=== PATIENT | male | born 1985 ===

== ENCOUNTER → 2023-12-03 | Emergency (ER) | payer SELFPAY ==
[~2023-12-03] MED LIST: ASPIRIN 81 MG CHEWABLE TABLET ONE; LIDOCAINE VISCOUS 2% 10ML ORAL SOLN ONE; MAGNES/ALUMIN/SIMET 30ML UCUP ONE; NA CHLORIDE 0.9% 1,000 ML ONE; PANTOPRAZOLE 40 MG INJ ONE; POTASSIUM 25 MEQ EFFERV TAB ONE
[2023-12-03 02:52] LABS: Hematocrit 40.6 % (39.6-49.0); Lymphocytes % 19.8 % (15.3-44.8); MPV 6.8 fL (7.6-11.3); Platelets 250 thou/uL (152-406); RBC Red Blood Cell Count 4.83 M/uL (4.33-5.43)
[2023-12-03 02:57] LABS: Protime INR 1.1
[2023-12-03 03:21] LABS: Albumin 3.5 g/dL (3.4-5.0); Bilirubin Direct 0.2 mg/dL (0-0.2); Bilirubin Indirect, Calculated 0.3 mg/dL (0.2-0.8); Bilirubin Total 0.5 mg/dL (0.2-1.0); Magnesium 2.4 mg/dL (1.6-2.4); Potassium 3.3 mEq/L (3.5-5.1); Troponin High Sensitivity 4.7 pg/mL (<58.9)
--- NOTE | 2023-12-03 05:45 | ER ---
Nurse's Notes [facility] Name: Trevor Vinson Age: 37 yrs Sex: Male : 1985 Arrival Date: 12/03/2023 Time: 02:15 Bed 4 Private MD: Diagnosis: Gastro-esophageal reflux disease with esophagitis;SARS-associated coronavirus as the cause of diseases classified elsewhere;Hypokalemia;Essential (primary) hypertension;Chest pain, unspecified Presentation: 12/03 02:27 Chief complaint: Patient states: I was covid+ 5 days ago. I initially had chest pain 7 jb4 days ago and it went away, yesterday I had a burning in my chest, and an hour ago I started having a stabbing pain in the middle of my chest. Coronavirus screen: Client presents with at least one sign or symptom that may indicate coronavirus-19. Ebola Screen: No symptoms or risks identified at this time. Initial Sepsis Screen: Does the patient meet any 2 criteria? No. Patient's initial sepsis screen is negative. Does the patient have a suspected source of infection? No. Patient's initial sepsis screen is negative. Risk Assessment: Do you want to hurt yourself or someone else? Patient reports no desire to harm self or others. Onset of symptoms was December 03, 2023. Transition of care: patient was not received from another setting of care. 02:27 Method Of Arrival: Ambulatory jb4 02:27 Acuity: CABRERA 3 jb4 Triage Assessment: 06:20 General: Behavior is calm, cooperative, appropriate for age. nw1 Historical: - Allergies: 02:30 No Known Allergies; jb4 - PMHx: 02:30 None; jb4 - PSHx: 02:30 None; jb4 - Immunization history:: Adult Immunizations up to date. - Social history:: Smoking status: Patient denies any tobacco usage or history of. - Family history:: not pertinent. Screenin:40 [facility] ED Fall Risk Assessment (Adult) History of falling in the last 3 months, nw1 including since admission No falls in past 3 months (0 pts) Confusion or Disorientation No (0 pts) Intoxicated or Sedated No (0 pts) Impaired Gait No (0 pts) Mobility Assist Device Used No (0 pt) Altered Elimination No (0 pt) Score/Fall Risk Level 0 - 2 = Low Risk Oriented to surroundings, Maintained a safe environment, Educated pt \\T\\ family on fall prevention, incl call for assistance when getting out of bed, Assessed \\T\\ reinforced patient's understanding of fall precautions, Provided non-skid footwear, Hourly rounding (assess needs \\T\\ fall precautionary measures) done. Abuse screen: Denies threats or abuse. Denies injuries from another. Nutritional screening: No deficits noted. Tuberculosis screening: No symptoms or risk factors identified. Assessment: 02:40 General: Appears in no apparent distress. well groomed, well developed, well nourished. nw1 04:57 Pain: Complains of pain in mid-sternal area Pain does not radiate. Pain began 2 hours nw1 ago. Is intermittent. Neuro: Level of Consciousness is awake, alert, obeys commands, Oriented to person, place, time, situation, Appropriate for age Public Relations Account Supervisor are equal bilaterally Moves all extremities. Full function Gait is steady. Cardiovascular: Reports chest pain, Denies diaphoresis, fatigue, lightheadedness, nausea, palpitations, shortness of breath, syncope, vomiting, Heart tones present Capillary refill < 3 seconds in bilateral fingers Rhythm is sinus rhythm. Respiratory: Denies cough, shortness of breath labored breathing, pain with respiration, pain with cough, pain with movement, air hunger. GI: No deficits noted. No signs and/or symptoms were reported involving the gastrointestinal system. Abdomen is non-distended. Derm: No deficits noted. No signs and/or symptoms reported regarding the dermatologic system. Skin is intact, is healthy with good turgor, Skin is dry, Skin is pink, warm \\T\\ dry. normal. Musculoskeletal: No deficits noted. No signs and/or symptoms reported regarding the musculoskeletal system. 05:49 Reassessment: questioned metoprolol XL 25mg order due to BP being 121/91 and heart rate nw1 of 62 with MD Baez and not feeling comfortable giving medication with that low of a heart rate and stable BP and no arrhythmia noted. Per Dr. Baez "It's fine, 25mg won't touch it". Pt to be discharged pending troponin level. Pt not to discharge at this time until pending labs are returned. 06:18 Reassessment: BP medication explained to patient and patient verbalized understanding nw1 of uses and adverse reactions to medication. Pt refused bp medication. Vital Signs: 02:27 BP 135 / 97; Pulse 68; Resp 16; Temp 97.3(TE); Pulse Ox 100% on R/A; Weight 81.65 kg jb4 (R); Height 5 ft. 10 in. (R); 04:15 BP 122 / 102; Pulse 69; Resp 17; Pulse Ox 100% ; nw1 05:28 BP 120 / 90; Pulse 64; Pulse Ox 99% on R/A; nw1 05:30 BP 121 / 91; Pulse 62; Pulse Ox 99% on R/A; nw1 06:17 BP 123 / 85; Pulse 63; Pulse Ox 98% on R/A; nw1 02:27 Body Mass Index 25.83 (81.65 kg, 177.8 cm) jb4 Geff Coma Score: 02:40 Eye Response: spontaneous(4). Motor Response: obeys commands(6). Verbal Response: nw1 oriented(5). Total: 15. ED Course: 02:17 Patient arrived in ED. ag3 02:27 Yusef Baez MD is Attending Physician. libertad 02:30 Triage completed. jb4 02:30 Arm band placed on right wrist. jb4 02:33 Ashlee Chicas, RN is Primary Nurse. nw1 02:40 Patient has correct armband on for positive identification. Placed in gown. Bed in low nw1 position. Call light in reach. Side rails up X2. Provided Education on: POC. Client placed on continuous cardiac and pulse oximetry monitoring. NIBP monitoring applied. script supervisor on. Pulse ox on. NIBP on. Door closed. Warm blanket given. 02:40 No provider procedures requiring assistance completed. Inserted saline lock: 20 gauge nw1 in right forearm, using aseptic technique. Blood collected. 03:10 Basic Metabolic Panel Sent. nw1 03:10 LFT's Sent. nw1 03:10 Magnesium Sent. nw1 03:10 NT PRO-BNP Sent. nw1 03:10 Troponin HS Sent. nw1 03:32 XRAY Chest (1 view) In Process Unspecified. EDMS 04:37 CT Chest For PE Angio In Process Unspecified. EDMS 05:06 Patient maintains SpO2 saturation greater than 95% on room air. nw1 05:07 Troponin HS: 5 am Sent. nw1 05:44 Kd Lobato MD is Referral Physician. [facility] 05:44 Nazia Babin MD is Referral Physician. [facility] 05:45 Troponin HS: 5 am Sent. nw1 06:20 IV discontinued, intact, bleeding controlled, No redness/swelling at site. Pressure nw1 dressing applied. Administered Medications: 03:03 Drug: Aspirin PO Chewable Tablet 324 mg PO once; 81 mg tablets x 4 Route: PO; nw1 03:03 Drug: NS 0.9% IV 1000 ml IV at 125 ml/hr continuous Route: IV; Rate: 125 ml/hr; Site: nw1 right forearm; 03:03 Drug: NS 0.9% IV 1000 ml IV at 1 bolus Per protocol; 1000 mL bolus Route: IV; Rate: 1 nw1 bolus; Site: right forearm; 04:18 Drug: GI Cocktail without - (Maalox PO 30 ml, Lidocaine Mucous Membrane 2 % 15 la4 ml) PO once Route: PO; 04:18 Drug: Pantoprazole IVP 40 mg IVP once Route: IVP; Site: left forearm; la4 04:18 Drug: Potassium PO Effervescent Tablet 25 mEq PO once; dissolve in 4 ounces of water or la4 juice Route: PO; 06:18 Not Given (Patient Refused): toprol xl25 mg PO once nw1 Medication: 02:40 VIS not applicable for this client. nw1 Outcome: 05:[address] [facility] 06:19 Discharged to home ambulatory, nw1 06:19 Condition: stable 06:19 Discharge instructions given to patient, Instructed on discharge instructions, follow up and referral plans. Demonstrated understanding of instructions, follow-up care, medications, Prescriptions given X 4, 06:20 Patient left the ED. nw1 Signatures: Dispatcher [employer] EDMS Yusef Baez MD MD cha Bryson, James, RN RN [email or web address] Reshma Brunson3 Km Kang RN RN [email or web address] Ashlee Chicas RN RN nw1 Corrections: (The following items were deleted from the chart) 05:03 04:57 Reassessment: Pt states that he has midsternal CP that has been intermittent x1 nw1 week getting worse captain waiter. Pt denies pain radiating anywhere. Pt states pain reduced to 5/10. nw1 05:03 04:57 Cardiovascular: Reports chest pain, Denies diaphoresis, fatigue, lightheadedness, nw1 nausea, palpitations, shortness of breath, syncope, vomiting, Heart tones present Capillary refill < 3 seconds in bilateral fingers Rhythm is sinus rhythm nw 05: 04:57 General: Appears in no apparent distress. well groomed, well developed, well nw1 nourished, nw 05: 04:57 Pain: Complains of pain in mid-sternal area Pain does not radiate. Pain began 2 nw1 hours ago. Is intermittent, nw1
--- NOTE | 2023-12-03 05:45 | EDPHYS ---
Physician Documentation [facility] Name: Trevor Vinson Age: 37 yrs Sex: Male : 1985 Arrival Date: 12/03/2023 Time: 02:15 Bed 4 Private MD: ED Physician Yusef Baez HPI: 12/03 03:13 This 37 yrs old Other Male presents to ER via Ambulatory with complaints of Chest Pain. lbiertad 03:13 The patient or guardian reports chest pain that is located primarily in the anterior [facility] chest wall. The pain does not radiate. Associated signs and symptoms: The patient has no apparent associated signs or symptoms. The chest pain is described as burning. Duration: The patient or guardian reports a single episode, that is now resolved. Severity of pain: At its worst the pain was mild in the emergency department the pain has improved markedly. The patient has experienced similar episodes in the past, several times. Historical: - Allergies: 02:30 No Known Allergies; jb4 - PMHx: 02:30 None; jb4 - PSHx: 02:30 None; jb4 - Immunization history:: Adult Immunizations up to date. - Social history:: Smoking status: Patient denies any tobacco usage or history of. - Family history:: not pertinent. ROS: 03:13 Constitutional: Negative for fever, chills, and weight loss, Eyes: Negative for injury, libertad pain, redness, and discharge, ENT: Negative for injury, pain, and discharge, Neck: Negative for injury, pain, and swelling, Respiratory: Negative for shortness of breath, cough, wheezing, and pleuritic chest pain, Abdomen/GI: Negative for abdominal pain, nausea, vomiting, diarrhea, and constipation, Back: Negative for injury and pain, : Negative for injury, bleeding, discharge, and swelling, MS/Extremity: Negative for injury and deformity, Skin: Negative for injury, rash, and discoloration, Neuro: Negative for headache, weakness, numbness, tingling, and seizure, Psych: Negative for depression, anxiety, suicide ideation, homicidal ideation, and hallucinations, Allergy/Immunology: Negative for hives, rash, and allergies, Endocrine: Negative for neck swelling, polydipsia, polyuria, polyphagia, and marked weight changes, Hematologic/Lymphatic: Negative for swollen nodes, abnormal bleeding, and unusual bruising, 03:13 Cardiovascular: Positive for chest pain, of the mid-sternal area, Exam: 03:13 Constitutional: This is a well developed, well nourished patient who is awake, alert, libertad and in no acute distress. Head/Face: Normocephalic, atraumatic. Eyes: Pupils equal round and reactive to light, extra-ocular motions intact. Lids and lashes normal. Conjunctiva and sclera are non-icteric and not injected. Cornea within normal limits. Periorbital areas with no swelling, redness, or edema. ENT: Nares patent. No nasal discharge, no septal abnormalities noted. Tympanic membranes are normal and external auditory canals are clear. Oropharynx with no redness, swelling, or masses, exudates, or evidence of obstruction, uvula midline. Mucous membranes moist. Neck: Trachea midline, no thyromegaly or masses palpated, and no cervical lymphadenopathy. Supple, full range of motion without nuchal rigidity, or vertebral point tenderness. No Meningismus. Chest/axilla: Normal chest wall appearance and motion. Nontender with no deformity. No lesions are appreciated. Cardiovascular: Regular rate and rhythm with a normal S1 and S2. No gallops, murmurs, or rubs. Normal PMI, no JVD. No pulse deficits. Respiratory: Lungs have equal breath sounds bilaterally, clear to auscultation and percussion. No rales, rhonchi or wheezes noted. No increased work of breathing, no retractions or nasal flaring. Abdomen/GI: Soft, non-tender, with normal bowel sounds. No distension or tympany. No guarding or rebound. No evidence of tenderness throughout. Back: No spinal tenderness. No costovertebral tenderness. Full range of motion. Male : Normal genitalia with no discharge or lesions. Skin: Warm, dry with normal turgor. Normal color with no rashes, no lesions, and no evidence of cellulitis. MS/ Extremity: Pulses equal, no cyanosis. Neurovascular intact. Full, normal range of motion. Neuro: Awake and alert, GCS 15, oriented to person, place, time, and situation. Cranial nerves II-XII grossly intact. Motor strength 5/5 in all extremities. Sensory grossly intact. Cerebellar exam normal. Normal gait. Psych: Awake, alert, with orientation to person, place and time. Behavior, mood, and affect are within normal limits. 03:21 ECG was reviewed by the Attending Physician. libertad 05:33 ECG was reviewed by the Attending Physician. [facility] Vital Signs: 02:27 BP 135 / 97; Pulse 68; Resp 16; Temp 97.3(TE); Pulse Ox 100% on R/A; Weight 81.65 kg jb4 (R); Height 5 ft. 10 in. (R); 04:15 BP 122 / 102; Pulse 69; Resp 17; Pulse Ox 100% ; nw1 05:28 BP 120 / 90; Pulse 64; Pulse Ox 99% on R/A; nw1 05:30 BP 121 / 91; Pulse 62; Pulse Ox 99% on R/A; nw1 06:17 BP 123 / 85; Pulse 63; Pulse Ox 98% on R/A; nw1 02:27 Body Mass Index 25.83 (81.65 kg, 177.8 cm) jb4 Claudia Coma Score: 02:40 Eye Response: spontaneous(4). Motor Response: obeys commands(6). Verbal Response: nw1 oriented(5). Total: 15. MDM: 02:27 Patient medically screened. [facility] 03:15 Differential diagnosis: abnormal EKG, acute myocardial infarction, acute pericarditis, libertad anxiety, coronary artery disease chest wall pain, Cholelithiasis costochondritis, esophagitis, pancreatitis, peptic ulcer disease, pericarditis, pleurisy, pneumonia, pulmonary embolus, stable angina, thoracic aortic disection, unstable angina. HEART Score: History: Slightly Suspicious (0), ECG: Non specific repolarization disturbance / LBTB / PM (1), Age: < or = 45 years (0), Risk Factors: No Risk Factors Known (0), Troponin: < or = 1 x Normal Limit (0), Total Score = 0. RODRIGO Risk Score: TOTAL SCORE = 0. Data reviewed: vital signs, nurses notes, lab test result(s), EKG, radiologic studies, CT scan, plain films. Consideration of Admission/Observation Escalation of care including admission/observation considered. I considered the following discharge prescriptions or medication management in the emergency department Medications were administered in the Emergency Department. See MAR. Test considered but Not performed: Ultrasound no 2 d echo. 12/03 02:28 Order name: Basic Metabolic Panel; Complete Time: 04:06 [facility] 12/03 02:28 Order name: CBC with Diff; Complete Time: 04:06 libertad 12/03 02:28 Order name: LFT's; Complete Time: 04:06 12/03 02:28 Order name: Magnesium; Complete Time: 04:06 12/03 02:28 Order name: NT PRO-BNP; Complete Time: 04:06 12/03 02:28 Order name: PT-INR; Complete Time: 04:06 12/03 02:28 Order name: Troponin HS; Complete Time: 04:06 12/03 02:28 Order name: Lipase; Complete Time: 04:06 12/03 03:10 Order name: Troponin HS: 5 am; Complete Time: 05:54 [facility] 12/03 02:28 Order name: XRAY Chest (1 view) 12/03 02:34 Order name: CT Chest For PE Angio rv1 12/03 02:28 Order name: EKG; Complete Time: 02:29 [facility] 12/03 03:10 Order name: EKG; Complete Time: 03:10 [facility] 12/03 02:28 Order name: Cardiac monitoring; Complete Time: 02:32 12/03 02:28 Order name: EKG - Nurse/Tech; Complete Time: 02:31 [facility] 12/03 02:28 Order name: IV Saline Lock; Complete Time: 03:10 libertad 12/03 02:28 Order name: Labs collected and sent; Complete Time: 03:10 12/03 02:28 Order name: O2 Per Protocol; Complete Time: 02:31 12/03 02:28 Order name: O2 Sat Monitoring; Complete Time: 02:31 [facility] 12/03 03:10 Order name: EKG - Nurse/Tech: 430am; Complete Time: 05:07 [facility] 12/03 05:34 Order name: Blood Pressure Recheck; Complete Time: 05:45 [facility] EC:21 Rate is 66 beats/min. Rhythm is regular. QRS [place] is Normal. CO interval is normal. QRS libertad interval is normal. QT interval is normal. No Q waves. T waves are Normal. No ST changes noted. Clinical impression: NSR w/ Non-specific ST/T Changes and No evidence of ischemia. Interpreted by me. Reviewed by me. 05:33 Rate is 64 beats/min. Rhythm is regular. QRS [place] is Normal. CO interval is normal. QRS libertad interval is normal. QT interval is normal. No Q waves. T waves are Normal. No ST changes noted. Clinical impression: Normal ECG and No evidence of ischemia. Interpreted by me. Reviewed by me. Administered Medications: 03:03 Drug: Aspirin PO Chewable Tablet 324 mg PO once; 81 mg tablets x 4 Route: PO; nw1 03:03 Drug: NS 0.9% IV 1000 ml IV at 125 ml/hr continuous Route: IV; Rate: 125 ml/hr; Site: nw1 right forearm; 03:03 Drug: NS 0.9% IV 1000 ml IV at 1 bolus Per protocol; 1000 mL bolus Route: IV; Rate: 1 nw1 bolus; Site: right forearm; 04:18 Drug: GI Cocktail without - (Maalox PO 30 ml, Lidocaine Mucous Membrane 2 % 15 la4 ml) PO once Route: PO; 04:18 Drug: Pantoprazole IVP 40 mg IVP once Route: IVP; Site: left forearm; la4 04:18 Drug: Potassium PO Effervescent Tablet 25 mEq PO once; dissolve in 4 ounces of water or la4 juice Route: PO; 06:18 Not Given (Patient Refused): toprol xl25 mg PO once nw1 Disposition Summary: 12/03/23 05:44 Discharge Ordered Notes: Location: Home libertad Problem: new libertad Symptoms: have improved libertad Condition: Stable libertad Diagnosis - Gastro-esophageal reflux disease with esophagitis libertad - SARS-associated coronavirus as the cause of diseases classified elsewhere libertad - Hypokalemia libertad - Essential (primary) hypertension libertad - Chest pain, unspecified libertad Followup: libertad - With: Private Physician - When: 2 - 3 days - Reason: Recheck today's complaints, Continuance of care, Re-evaluation by your physician Followup: libertad - With: Kd Lobato MD - When: 2 - 3 days - Reason: Recheck today's complaints, Continuance of care, Re-evaluation by your physician Followup: libertad - With: Nazia Babin MD - When: 2 - 3 days - Reason: Recheck today's complaints, Re-evaluation by your physician Discharge Instructions: - Discharge Summary Sheet libertad - Nonspecific Chest Pain, Adult libertad - Potassium Content of Foods libertad - Esophagitis libertad - Gastroesophageal Reflux Disease, Adult libertad - Indigestion libertad - Nonspecific Chest Pain, Adult, [id number] libertad - Aspirin and Your Heart libertad - Hypokalemia libertad - COVID-19 libertad - 10 Things You Can Do to Manage Your COVID-19 Symptoms at Home - [facility] (05/22/2021) libertad - Viral Illness, Adult libertad - COVID-19: What to Do If You Are Sick - [facility] (01/26/2022) [facility] Forms: - Medication Reconciliation Form [facility] - Thank You Letter [facility] - Antibiotic Education libertad - Prescription Opioid Use [facility] - Patient Portal Instructions [facility] - Leadership Thank You Letter [facility] Prescriptions: - ondansetron 4 mg Oral Tablet,disintegrating - take 1 tablet ORAL route every 6-8 hours; 20 tablet; Refills: 0, Product [facility] Selection Permitted - Carafate 1 gram Oral tablet - take 1 tablet ORAL route 4 times per day take on an empty stomach, beginning on [facility] waking and last dose at bedtime; 40 tablet; Refills: 0, Product Selection Permitted - Protonix 40 mg Oral Tablet - take 1 tablet ORAL route once daily; 30 tablet; Refills: 0, Product Selection [facility] Permitted - Toprol XL 25 mg Oral Tablet - take 1 tablet ORAL route once daily; 20 tablet; Refills: 0, Product Selection [facility] Permitted Signatures: Dispatcher [employer] Yusef Esposito MD MD cha Bryson, James, RN RN jb4 Km Kang RN RN la4 Ashlee Chicas RN RN nw1
[2023-12-03 08:10] VITALS: BP 123/85; TEMP 97.3; O2SAT 98
--- NOTE | 2023-12-03 20:19 | RAD REPORT ---
EXAM DESCRIPTION: RAD - Chest Single View - 12/03/2023 3:31 am CLINICAL HISTORY: The patient is 37 years old and is Male; CHEST PAIN TECHNIQUE: Frontal view of the chest. COMPARISON: No relevant prior studies available. FINDINGS: Lungs: Unremarkable. No consolidation. Pleural space: Unremarkable. No pneumothorax. Heart: Unremarkable. Mediastinum: Unremarkable. Normal mediastinal contour. Bones/joints: No acute findings. IMPRESSION: No acute findings in the chest. Electronically signed by: Uday Rubin MD 12/03/2023 03:50 AM PLASTIC JOINT MAKER Due to temporary technical issues with the PACS/Fluency reporting system, reports are being signed by the in house radiologists without review as a courtesy to insure prompt reporting. The interpreting radiologist is fully responsible for the content of the report.
--- NOTE | 2023-12-03 20:20 | RAD REPORT ---
EXAM DESCRIPTION: CT - Chest For Pe Angio - 12/03/2023 7:28 am CLINICAL HISTORY: COUGH, CHEST PAIN COMPARISON: None. TECHNIQUE: CT CHEST ANGIOGRAPHY WITH IV CONTRAST on 12/03/2023 2:34 AM DRAFTER CARTOGRAPHIC. MIPS reconstructions were generated. This exam was performed according to our departmental dose-optimization program, which includes autom ated exposure control, adjustment of the mA and/or kV according to patient size and/or use of iterati ve reconstruction technique. MIP images were generated. FINDINGS: Thoracic aorta is normal in course and caliber without aneurysm or dissection. Pulmonary a rteries are adequately opacified without acute or chronic filling defects. The heart is normal in size. There is no pericardial effusion. Intrathoracic lymph nodes are not enla rged. There is no pleural effusion, pleural thickening or pneumothorax. Central airways are patent. Lungs a re clear with no consolidation, mass or interstitial lung disease. There are no acute abnormalities within the limited images of the upper abdomen. There are no acute osseous findings. No suspicious bony lesions. IMPRESSION: No aortic dissection or aneurysm. No pulmonary embolus. No pneumonia. Electronically signed by: Roberto Varner MD 12/03/2023 05:24 AM DRAFTER CARTOGRAPHIC Due to temporary technical issues with the PACS/Fluency reporting system, reports are being signed by the in house radiologists without review as a courtesy to insure prompt reporting. The interpreting radiologist is fully responsible for the content of the report.
--- NOTE | 2023-12-08 13:49 | EKG ---
Test Date: 2023-12-03 Test Time: 05:17:07 Bellows Assembler: SHERIN MEASUREMENT RESULTS: Intervals: Rate: 64 OK: 134 QRSD: 90 QT: 388 QTc: 400 [place]: P: 55 OK: 134 QRS: 51 T: 44 INTERPRETIVE STATEMENTS: Normal sinus rhythm Normal ECG No previous ECG available for comparison Electronically Signed On 12-08-23 13:28:37 ROUTEMAN by Kd Lobato
--- NOTE | 2023-12-08 13:50 | EKG ---
Test Date: 2023-12-03 Test Time: 02:30:04 Director Global: SHERIN MEASUREMENT RESULTS: Intervals: Rate: 66 TN: 136 QRSD: 102 QT: 394 QTc: 413 [place]: P: 57 TN: 136 QRS: 55 T: 49 INTERPRETIVE STATEMENTS: Normal sinus rhythm Nonspecific ST abnormality Abnormal ECG No previous ECG available for comparison Electronically Signed On 12-08-23 13:29:15 BRAZING MACHINE SETTER by Kd Lobato
== END ==
LOC: ER 02:15
DX: K21.00 Gastro-esophageal reflux disease with esophagitis, without bleeding (principal); U07.1 COVID-19; E87.6 Hypokalemia; I10 Essential (primary) hypertension; R07.89 Other chest pain
CPT/HCPCS: 36415; 71045; 71275; 80048; 80076; 83690; 83735; 83880; 84484; 85025; 85610; 93005; C9113; J7030; Q9967